=== PATIENT | male | born 1990 | race Caucasian/White ===

== ENCOUNTER 2021-03-04 00:57 | Emergency (ER) | payer OTHER ==
[~2021-03-04] VITALS: Ht 170.2 cm; Wt 68.0 kg
[2021-03-04 01:01] VITALS: BP 160/88
[2021-03-04] MEDS ORDERED: NORCO5 PO ×2 (01:29→01:30)
[2021-03-04] MEDS ORDERED: INDOMETHACIN 5050 M1 PO (01:29)
== END 2021-03-04 01:56 | disposition home or self-care (01) ==
LOC: ER 00:57
DX: M25.571 Pain in right ankle and joints of right foot (principal); M10.9 Gout, unspecified; Z88.1 Allergy status to other antibiotic agents

== ENCOUNTER 2021-03-05 23:30 | Emergency (ER) | payer OTHER ==
[~2021-03-05] VITALS: Ht 175.3 cm; Wt 93.0 kg
[~2021-03-05 23:30] MED LIST: INDOMETHACIN 5050 M1 PO; NORCO5 PO
[2021-03-06 00:10] LABS: ABSOLUTE NEUTROPHILS 5.5 thou/uL (1.4-8.2); BASOPHILS 0.6 % (0.0-2.0); EOSINOPHILS 1.5 % (0.0-3.0); HEMATOCRIT 39.2 % (42.0-52.0); HEMOGLOBIN 13.3 gm/dL (14.0-18.0); LYMPHOCYTES 20.8 % (24.0-44.0); MCH 28.5 pg (26.0-34.0); MCV 83.9 fL (80.0-100.0); MONOCYTES 8.6 % (1.0-8.0); PLATELET COUNT 224 thou/uL (150-400); POLYS 68.5 % (36.0-66.0); RBC 4.67 mil/uL (4.50-6.00); RDW 12.5 % (10.5-14.5)
[2021-03-06 02:57] LABS: BF CRYSTALS No Crystals seen (NONE SEEN); SOURCE SYNOVIAL
[2021-03-06 03:18] LABS: COLOR STRAW; SOURCE SYNOVIAL; TOTAL VOLUME 2 mL
[2021-03-06 03:19] LABS: BF NUCLEATED CELLS 4328 /mm3; BF RBC 5168 /mm3; CLARITY CLOUDY
[2021-03-06 03:44] LABS: BF MACROPHAGE 5 %; BF NEUTROPHILS 77 %
[2021-03-06 03:55] VITALS: BP 135/78
[2021-03-06 14:07] LABS: BODY FLUID GLUCOSE 97 mg/dL (())
[2021-03-09 15:20] LABS: SOURCE SYNOVIAL
== END 2021-03-06 03:56 | disposition home or self-care (01) ==
LOC: ER 23:30
PROVIDERS: Emergency Medicine
DX: M25.571 Pain in right ankle and joints of right foot (principal); Z88.1 Allergy status to other antibiotic agents; M10.9 Gout, unspecified